=== PATIENT | male | born 1970 ===

== ENCOUNTER 2025-03-15 21:27 | Emergency (ER) | payer OTHER | END 2025-03-15 22:17 | LOC: CSHERS 21:27 | DX: K91.872 Postprocedural seroma of a digestive system organ or structure following a digestive system procedure (principal); I11.0 Hypertensive heart disease with heart failure; I50.9 Heart failure, unspecified; J44.9 Chronic obstructive pulmonary disease, unspecified; Z79.899 Other long term (current) drug therapy | CPT/HCPCS: 99283 ==